=== PATIENT | female | born 1995 | race Caucasian/White ===

== ENCOUNTER 2017-01-16 11:08 | Inpatient (IN) | payer MEDICAID, OTHER ==
[2017-01-16] VITALS (8 sets, daily range): BP systolic 119–131; BP diastolic 56–78; PULSE 79–98; RESP 16–18; TEMP 99.3–101.2; O2SAT 97–99
[~2017-01-16] VITALS: Ht 160 cm; Wt 52.2 kg
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
[2017-01-16] MEDS ORDERED: TETANUS/DIPHTHERIA TOXOID ADULT 0.5 ML VIAL IM ONE (11:30)
[2017-01-16] MEDS ORDERED: LIDOCAINE 1%/EPINEPHrine 1:100,000 SOLN 20 ML VIAL INFIL ONE (11:30)
[2017-01-16] MEDS ORDERED: METH40TA PO (11:31)
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
[2017-01-16] MEDS ORDERED: ACETAMINOPHEN 500 MG CPLT PO ONE (12:30)
[2017-01-16] MEDS ORDERED: SODIUM CHLORIDE 0.9% FLUSH 10 ML FLUSH IV FLUSH PRN ×2 (12:45→17:00)
[2017-01-16] MEDS ORDERED: ONDANSETRON HCL 4 MG/2 ML VIAL IV PUSH ONE (12:45)
[2017-01-16 13:11] LABS: AUTOMATED NEUTROPHIL # 6.2 TH/MM3 (1.8-7.7); BASOPHIL % 0.1 % (0.0-2.0); EOSINOPHIL % 0.1 % (0.0-4.0); HEMATOCRIT 32.8 % (35.0-46.0); HEMO FLAGS DIFF FINAL; LYMPH % 12.9 % (9.0-44.0); MEAN CELL VOLUME 75.6 FL (80.0-100.0); MEAN CORPUSCULAR HEMOGLOBIN 25.4 PG (27.0-34.0); MEAN CORPUSCULAR HGB CONC 33.7 % (32.0-36.0); MONO % 4.4 % (0.0-8.0); NEUT % 82.5 % (16.0-70.0); PLATELET COUNT 265 TH/MM3 (150-450); RED BLOOD COUNT 4.34 MIL/MM3 (4.00-5.30); RED CELL DISTRIBUTION WIDTH 14.5 % (11.6-17.2); WHITE BLOOD COUNT 7.5 TH/MM3 (4.0-11.0)
[2017-01-16] MEDS ORDERED: MORPHINE SULFATE 4 MG/ML INJ IV PUSH ONE (13:15)
[2017-01-16 13:25] LABS: APTT (PATIENT) 29.2 SEC (24.3-30.1); POTASSIUM 3.4 MEQ/L (3.5-5.1); PROTHROMBIN TIME - PATIENT 11.5 SEC (9.8-11.6)
[2017-01-16] MEDS ORDERED: IOHEXOL 350 MG/ML 10 ML VIAL (for RAD DIAG) IV ONE (13:37)
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
[2017-01-16 13:51] LABS: BLOOD, URINE NEG (NEG); COMMENT (UR) CULT NOT INDICATED; CULTURE IF INDICATED CULT NOT INDICATED; GLUCOSE,URINE NEG (NEG); KETONE, URINE NEG (NEG); MUCUS URINE FEW /lpf (OCC); NITRITE,URINE NEG (NEG); SQUAMOUS EPITHELIAL CELL URINE 8 /hpf (0-5); URINE COLOR YELLOW (YELLW/STRAW)
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
[2017-01-16] MEDS ORDERED: CALCIUM GLUCONATE INJ 1 GM in SODIUM CHLORIDE 0.9% INJ 100 ML IV PRN (17:00)
[2017-01-16] MEDS ORDERED: LORazepam 2 MG/ML VIAL IVP PRN (17:00)
[2017-01-16] MEDS ORDERED: POTASSIUM CHLOR 20 MEQ PREMIX 100 ML IV PRN (17:00)
[2017-01-16] MEDS ORDERED: ALUMINUM/MAGNESIUM/SIMETH 30 ML CUP PO PRN (17:00)
[2017-01-16] MEDS ORDERED: MAGNESIUM SULFATE INJ 2 GM in SODIUM CHLORIDE 0.9% INJ 100 ML IV PRN (17:00)
[2017-01-16] MEDS ORDERED: ACETAMINOPHEN 325 MG TAB PO PRN (17:00)
[2017-01-16] MEDS ORDERED: ACETAMINOPHEN/HYDROcodone 325 MG/10 MG TAB PO PRN (17:00)
[2017-01-16] MEDS ORDERED: cloNIDine HCL 0.1 MG TAB PO PRN (17:00)
[2017-01-16] MEDS ORDERED: MENTHOL LOZENGE BUCCAL PRN (17:00)
[2017-01-16] MEDS ORDERED: RESP: ALBUTEROL 2.5 MG/3 ML NEB (PRN) NEB (17:00)
[2017-01-16] MEDS ORDERED: MAGNESIUM HYDROXIDE SUSP 30 ML CUP PO PRN (17:00)
[2017-01-16] MEDS ORDERED: LABETALOL HCL 100 MG/20 ML VIAL IV PRN (17:00)
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
[2017-01-16] MEDS: BACITRACIN TOP OINT 15 GM TUBE TOP SCH (19:46)
[2017-01-16] MEDS: DOCUSATE SODIUM 100 MG CAP PO SCH (19:46)
[2017-01-16] MEDS: SODIUM CHLORIDE 0.9% FLUSH 10 ML FLUSH IV FLUSH SCH (19:46)
[2017-01-16] MEDS: MORPHINE SULFATE 4 MG/ML INJ IV PRN (19:47)
[2017-01-17] VITALS (12 sets, daily range): BP systolic 105–125; BP diastolic 62–73; PULSE 72–113; RESP 14–31; TEMP 98.1–100.2; O2SAT 96–100
[2017-01-17] MEDS: MORPHINE SULFATE 4 MG/ML INJ IV PRN ×5 (00:11→11:23)
[2017-01-17] MEDS: ACETAMINOPHEN/HYDROcodone 325 MG/10 MG TAB PO PRN (02:19)
[2017-01-17 04:51] LABS: BICARBONATE 24.5 MEQ/L (21.0-32.0); POTASSIUM 3.8 MEQ/L (3.5-5.1)
--- NOTE | 2017-01-17 06:18 | RADRPT ---
EXAM DATE/TIME: 01/17/2017 05:19 [facility] COMPARISON: No previous studies available for comparison. INDICATIONS : Follow up bleed. RADIATION DOSE: 35.41 CTDIvol (mGy) MEDICAL HISTORY : None SURGICAL HISTORY : None. ENCOUNTER: Subsequent ACUITY: 1 day PAIN SCALE: Non-responsive LOCATION: cranial TECHNIQUE: Multiple contiguous axial images were obtained of the head. Using automated exposure control and adj ustment of the mA and/or kV according to patient size, radiation dose was kept as low as reasonably a chievable to obtain optimal diagnostic quality images. FINDINGS: CEREBRUM: There is a small amount of hemorrhage remaining in the supraorbital cortices a combination of subarac hnoid and possibly intraparenchyma hemorrhage. The ventricles are normal for age. No evidence of m idline shift, mass lesion, or acute infarction. No extra-axial fluid collections are seen. POSTERIOR FOSSA: The cerebellum and brainstem are intact. The 4th ventricle is midline. The cerebellopontine angle i s unremarkable. EXTRACRANIAL: The visualized portion of the orbits is intact. SKULL: The calvaria is intact. No evidence of skull fracture. Subcutaneous hematoma left occipital region. CONCLUSION: There is a small amount of hemorrhage remaining in the supraorbital cortices a combination of subarac hnoid and possibly intraparenchyma hemorrhage. Vel Shah MD on January 17, 2017 at 6:14 Board Certified Radiologist. This report was verified electronically.
[2017-01-17] MEDS: DOCUSATE SODIUM 100 MG CAP PO SCH ×2 (08:31→19:55)
[2017-01-17] MEDS: PANTOPRAZOLE SOD 40 MG DELAYED RELEASE TAB PO SCH (08:31)
[2017-01-17] MEDS: SODIUM CHLORIDE 0.9% FLUSH 10 ML FLUSH IV FLUSH SCH ×2 (08:32→19:56)
[2017-01-17] MEDS ORDERED: INFLUENZA VIRUS VACCINE (QUADRIVALENT) 0.5 ML SYR IM ONE (10:00)
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
[2017-01-17] MEDS: METHADONE HCL 10 MG TAB PO SCH (11:30)
[2017-01-17] MEDS: BACITRACIN TOP OINT 15 GM TUBE TOP SCH ×2 (18:39→19:56)
[2017-01-18 00:06] VITALS: BP 122/73; PULSE 84; RESP 18; TEMP 100.3; O2SAT 100
[2017-01-18] MEDS: ACETAMINOPHEN/HYDROcodone 325 MG/10 MG TAB PO PRN (00:18)
[2017-01-18 07:15] VITALS: BP 109/56; PULSE 86; RESP 17; TEMP 99; O2SAT 100
[2017-01-18] MEDS: DOCUSATE SODIUM 100 MG CAP PO SCH (09:01)
[2017-01-18] MEDS: METHADONE HCL 10 MG TAB PO SCH (09:02)
[2017-01-18] MEDS: PANTOPRAZOLE SOD 40 MG DELAYED RELEASE TAB PO SCH (09:02)
[2017-01-18] MEDS: BACITRACIN TOP OINT 15 GM TUBE TOP SCH (09:03)
[2017-01-18] MEDS: SODIUM CHLORIDE 0.9% FLUSH 10 ML FLUSH IV FLUSH SCH (09:03)
== END 2017-01-18 10:50 | disposition left against medical advice (07) | DRG 83 ==
LOC: NEPE 11:08 → NEDA 14:21 → N03A 19:06 → N05A 01-17 21:22
PROVIDERS: ADMIT Neurological Surgery; ATTEND Neurological Surgery
PROC: 0HQ0XZZ Repair Scalp Skin, External Approach (ICD-10-PCS; principal; 2017-01-16)
DX: S06.5X9A Traumatic subdural hemorrhage with loss of consciousness of unspecified duration, initial encounter (principal); F11.20 Opioid dependence, uncomplicated; S01.01XA Laceration without foreign body of scalp, initial encounter; S50.312A Abrasion of left elbow, initial encounter; S30.810A Abrasion of lower back and pelvis, initial encounter; Y92.410 Unspecified street and highway as the place of occurrence of the external cause; V48.4XXA Person boarding or alighting a car injured in noncollision transport accident, initial encounter
CPT/HCPCS: 12013; 70450; 71260; 72125; 74177; 80048; 81001; 84703; 85025; 85610; 85730; 87641; 90471; 90686; 90714; 96374; 96375; J2270; J2405; J3480; Q2038; Q9967